=== PATIENT | male | born 1960 | race Caucasian/White ===

== ENCOUNTER → 2016-11-19 | Outpatient (CLI) | payer MEDICARE, OTHER ==
[~2016-11-19] MED LIST: GASTROGRAFIN SOLUTION 30ML (Q9963) As Ordered ONE; ISOVUE-370 76% 100ML VIAL (Q9967) As Ordered ONE
--- NOTE | 2016-11-19 13:04 | REP ---
CT of the chest abdomen pelvis with IV and oral contrast and patient with known multiple skeletal hepatic metastases and prostate carcinoma. Comparison is the most recent prior study of 07/08/2016. Chest: There are no lung masses or nodules. There are no infiltrates or effusions. Lung chapman are clear. There is no mediastinal, hilar or axillary lymph node enlargement. The thoracic aorta is unremarkable. Cardiac size is normal. There is no pericardial effusion. There are numerous blastic skeletal metastases throughout all skeletal structures of the chest, similar to the prior studies. Impression: Numerous blastic skeletal metastases, unchanged from prior studies. No lung nodules or masses. No adenopathy or effusion. No change from prior studies. Abdomen and pelvis: There are numerous confluent nodular densities throughout all lobes of the liver compatible with multiple hepatic metastases. This is unchanged. There is no biliary duct dilatation. The gallbladder, pancreas and spleen are unremarkable. The adrenals, kidneys and abdominal aorta are unremarkable. There is a [place] filter in the abdominal vena cava. This is unchanged. The abdominal aorta is unremarkable. There is no retroperitoneal or mesenteric adenopathy. There is no bowel distension. Pelvis: The pelvic bowel loops are unremarkable. There is no pelvic adenopathy. The bladder is unremarkable. There is a fat-containing periumbilical hernia as previously. The peritoneal defect measures 2.4 cm and the hernia sac measures 5.3 cm, not significantly changed. There is no pelvic ascites. There are numerous blastic skeletal metastases throughout all skeletal structures, as previously. There is internal fixation of the left hip, unchanged. Impression: No significant interval change. There are diffuse blastic skeletal metastases. Numerous hepatic metastases. No ascites or adenopathy. Fat containing periumbilical hernia, unchanged. Internal fixation of the left hip, unchanged. Signed by Randall Saleem MD 11/19/2016 12:55 P
--- NOTE | 2016-11-19 16:36 | REP ---
Whole body radionuclide bone scan: Comparison is 07/08/2016. Whole body imaging is performed. Additionally oblique views of the ribs and pelvis are performed as previously. There is uptake in the shoulders bilaterally, unchanged, degenerative versus metastatic versus combination. There is bilateral uptake in the sternoclavicular joints, unchanged, degenerative versus metastatic. There is focal uptake at the costochondral junctions of the left second and fifth ribs and of the right fifth rib, unchanged. This could be degenerative or metastatic. There is a focus of uptake superiorly in the sternum, unchanged, compatible with metastasis. There is subtle nonspecific uptake at the costovertebral junctions of several ribs. This could be degenerative or metastatic. There is uptake in the left hip from prior surgery. There is nonspecific uptake in the right patella, unchanged. The uptake in the left patella identified previously is no longer present. Impression: Multiple uptake foci as described. The study is performed with 20 mCi of technetium 99m labeled MDP. Signed by Randall Saleem MD 11/19/2016 04:28 P
== END ==
LOC: M RAD 09:51
PROVIDERS: ATTEND Internal Medicine Hematology & Oncology
DX: C61 Malignant neoplasm of prostate (principal); D63.0 Anemia in neoplastic disease
CPT/HCPCS: 71260; 74178; 78306; A9503; Q9963; Q9967